=== PATIENT | female | born 1985 ===

== ENCOUNTER 2024-02-16 05:34 | Day surgery (SDC) | payer OTHER ==
[2024-02-09 13:39] VITALS: BP 110/76
[~2024-02-16] VITALS: Ht 170.2 cm; Wt 62.6 kg
[2024-02-16] MEDS ORDERED: POVIDONE-IODINE SCRUB 118 ML BOTT TOP ONE (07:45)
[2024-02-16] MEDS ORDERED: ONDANSETRON HCL 2 MG/ML VIAL IV STA (07:55)
[2024-02-16] MEDS ORDERED: KETOROLAC TROMETHAMINE 30 MG VIAL IV ONE (08:00)
[2024-02-16] MEDS ORDERED: MORPHINE SULFATE 4 MG/ML VIAL IV ONE (09:15)
== END 2024-02-16 10:55 | disposition home or self-care (01) ==
LOC: CIR.AMB 05:34
PROVIDERS: ATTEND Obstetrics & Gynecology
DX: N84.0 Polyp of corpus uteri (principal); N93.8 Other specified abnormal uterine and vaginal bleeding